=== PATIENT | male | born 1940 | race Caucasian/White ===

== ENCOUNTER 2016-07-09 06:14 | Inpatient (IN) | payer MEDICARE ==
[~2016-07-09] VITALS: Ht 167.6 cm; Wt 63.0 kg
[2016-07-09 10:54] VITALS: BP 131/77
[2016-07-09] MEDS ORDERED: HYDROCODONE/APAP 5/325MG 1 EACH TABLET PO PRN (14:30)
[2016-07-09] MEDS ORDERED: MAG HYDROX/AL HYDROX/SIMETH 30 ML UDC PO PRN (14:30)
[2016-07-09] MEDS ORDERED: LORAZEPAM INJ 2 MG/ML VIAL IV PRN (14:30)
[2016-07-09] MEDS ORDERED: Z GUARD REMEDY 2 OZ OINT TP PRN (14:30)
[2016-07-09] MEDS ORDERED: ZOLPIDEM TARTRATE 5 MG TABLET PO PRN (14:30)
[2016-07-09] MEDS ORDERED: ONDANSETRON HCL/PF 4 MG/2 ML VIAL IVP PRN (14:30)
[2016-07-09] MEDS ORDERED: MVI-12 10ML IV ONE (14:30)
[2016-07-09] MEDS ORDERED: ACETAMINOPHEN 325 MG TABLET PO PRN (14:30)
[2016-07-09] MEDS ORDERED: MAGNESIUM HYDROXIDE 30 ML UDC PO PRN (14:30)
[2016-07-09] MEDS ORDERED: SECONDARY IV SET 1 EA INFUS.SET MC ONE (15:41)
[2016-07-09] MEDS ORDERED: IV SET PRIMARY PUMP SET 1 EA INFUS.SET MC ONE (15:41)
[2016-07-09 16:00] VITALS: BP 133/81
[2016-07-09] MEDS ORDERED: MVI ADULT 10ML VIAL = 1AMP 10 ML in IV NS 0.9% 1,000 ML IV ONE (16:00)
[2016-07-09] MEDS ORDERED: Thiamine 100 MG in IV D5W 50 ML IV SCH (16:00)
[2016-07-09] MEDS ORDERED: Folic acid 1 MG in IV D5W 50 ML IV SCH (16:00)
[2016-07-09 20:00] VITALS: BP 129/81
[2016-07-09 20:09] VITALS: BP 129/81
[2016-07-09] MEDS: IV NS 0.9% 1,000 ML IV PRN (23:52)
[2016-07-10 06:35] LABS: BASOPHILS % (AUTO) 0.3 % (0.0-2.0); DIFF TOTAL % 100 %; EOSINOPHILS % (AUTO) 0.8 % (0.0-6.0); HEMATOCRIT 33 % (39-51); LYMPHOCYTES # (AUTO) 1.8 /CMM (0.8-4.8); LYMPHOCYTES % (AUTO) 36.4 % (20.0-44.0); MEAN CORPUSCULAR HEMOGLOBIN 32 PG (26.0-33.0); MEAN CORPUSCULAR HGB CONC 34 g/dl (31.0-36.0); MEAN CORPUSCULAR VOLUME 94 fL (80-96); MONOCYTES # (AUTO) 0.6 /CMM (0.1-1.30); MONOCYTES % (AUTO) 11.4 % (2.0-12.0); NEUTROPHILS # (AUTO) 2.5 /CMM (1.8-8.9); NEUTROPHILS % (AUTO) 51.1 % (43.0-81.0); PLATELET COUNT (AUTO) 145 /CMM (150-450); RED BLOOD CELL COUNT(AUTO) 3.44 MIL/uL (4.5-6.0); WHITE BLOOD COUNT (AUTO) 4.8 K/uL (4.3-11.0)
[2016-07-10 07:06] LABS: CALCIUM, SERUM 8.5 mg/dL (8.5-10.1); CREATININE 1.1 mg/dL (0.6-1.3); PHOSPHORUS 1.9 mg/dL (2.5-4.9); POTASSIUM 3.2 mmol/L (3.5-5.1)
[2016-07-10 08:00] VITALS: BP 130/74
[2016-07-10] MEDS ORDERED: IV NS 0.9% 1,000 ML BAG IV SCH (09:00)
[2016-07-10] MEDS: IV NS 0.9% 1,000 ML IV PRN (09:41)
[2016-07-10 09:53] VITALS: BP 130/74
[2016-07-10] MEDS ORDERED: POTASSIUM CHLORIDE 20 MEQ TAB.PRT.SR PO ONE (10:30)
[2016-07-10] MEDS: THIAMINE HCL 100 MG TABLET PO SCH (15:22)
[2016-07-10] MEDS: FOLIC ACID 1 MG TABLET PO SCH (15:22)
[2016-07-10] MEDS ORDERED: K PHOS NEUTRAL 250 MG TABLET PO ONE (15:30)
[2016-07-10 16:00] VITALS: BP 126/77
[2016-07-10 20:00] VITALS: BP 133/80
[2016-07-11 00:03] VITALS: BP 133/80
[2016-07-11] MEDS: IV NS 0.9% 1,000 ML IV PRN (06:45)
[2016-07-11 07:27] LABS: CALCIUM, SERUM 8.6 mg/dL (8.5-10.1); CREATININE 0.9 mg/dL (0.6-1.3); PHOSPHORUS 2.2 mg/dL (2.5-4.9); POTASSIUM 2.9 mmol/L (3.5-5.1)
[2016-07-11 07:50] VITALS: BP 138/82
[2016-07-11 08:00] VITALS: BP_SYST 132; BP_SYST 138; BP_DIAS 82
[2016-07-11] MEDS: FOLIC ACID 1 MG TABLET PO SCH (08:47)
[2016-07-11] MEDS: THIAMINE HCL 100 MG TABLET PO SCH (08:47)
[2016-07-11] MEDS ORDERED: IV SET PRIMARY PUMP SET 1 EA INFUS.SET MC ONE (09:21)
[2016-07-11] MEDS ORDERED: K PHOS NEUTRAL 250 MG TABLET PO ONE (11:00)
[2016-07-11] MEDS: POTASSIUM CHLORIDE 20 MEQ TAB.PRT.SR PO SCH ×3 (11:18→13:25)
[2016-07-11 12:00] VITALS: BP 110/59
[2016-07-11 16:00] VITALS: BP 100/73
== END 2016-07-11 16:45 | disposition home or self-care (01) | DRG 682 ==
LOC: MED 08:01
PROVIDERS: ADMIT Nurse Practitioner Acute Care; ATTEND Nurse Practitioner Acute Care
DX: N17.0 Acute kidney failure with tubular necrosis (principal); K76.7 Hepatorenal syndrome; E86.9 Volume depletion, unspecified; E87.6 Hypokalemia; F10.129 Alcohol abuse with intoxication, unspecified; R73.9 Hyperglycemia, unspecified
CPT/HCPCS: 36415; 80048-TC; 80061-TC; 83735-TC; 84100-TC; 85025-TC; 87081-TC; 97001-TC; J3411; J3490; J7030; J7060